=== PATIENT | female | born 1990 ===

== ENCOUNTER 2018-03-04 01:18 | Emergency (ER) | payer SELFPAY ==
[2018-03-04 01:39] VITALS: RESP 16
--- NOTE | 2018-03-04 01:54 | ED PDOC ---
HPI: General Adult Time Seen by Provider: 03/04/18 01:45 Chief Complaint (Nursing): Weakness/Neurological Deficit Chief Complaint (Provider): HYPOGLYCEMIA History Per: Patient (27 Y/O FEMALE IDDM HERE FOR EVALUATION OF EPISODE OF HYPOGLYCEMIA. PATIENT NOTED WITH BS OF 27 AT HOME AND GIVEN GLUCAGON BY MOTHER. STATES SHE TOOK INSULIN NOVOLG AT 6PM USUALY PRIOR TO DINNER BUT HAS HAD A LOT OF PHYSICAL ACTIVITY TODAY CLEANING MULTIPLE HOMES AND BELIEVES THIS IS WHY BLOOD GLUCOSE DROPPED.) Past Medical History Reviewed: Historical Data, Nursing Documentation, Vital Signs Vital Signs: Last Vital Signs Temp Pulse 98 H 03/04/18 01:36 Resp 16 03/04/18 01:36 BP 117/78 03/04/18 01:36 Pulse Ox 100 03/04/18 01:36 - Family History Family History: States: No Known Family Hx - Allergies Allergies/Adverse Reactions: Allergies Allergy/AdvReac Type Severity Reaction Status Date / Time No Known Allergies Allergy Verified 03/04/18 01:39 Review of Systems ROS Statement: Except As Marked, All Systems Reviewed And Found Negative Physical Exam - Reviewed Nursing Documentation Reviewed: Yes Vital Signs Reviewed: Yes - Physical Exam Appears: Positive for: Well, Non-toxic, No Acute Distress Head Exam: Positive for: ATRAUMATIC, NORMAL INSPECTION, NORMOCEPHALIC Skin: Positive for: Normal Color, Warm, DRY Eye Exam: Positive for: EOMI, Normal appearance, PERRL ENT: Positive for: Normal ENT Inspection Neck: Positive for: Normal, Painless ROM Cardiovascular/Chest: Positive for: Regular Rate, Rhythm Respiratory: Positive for: CNT, Normal Breath Sounds Gastrointestinal/Abdominal: Positive for: Normal Exam, Soft Back: Positive for: Normal Inspection Extremity: Positive for: Normal ROM Neurologic/Psych: Positive for: Alert, Oriented - Laboratory Results Result Diagrams: 03/04/18 03:35 03/04/18 03:35 - ECG O2 Sat by Pulse Oximetry: 100 Disposition - Clinical Impression Clinical Impression: Hypoglycemia - Patient ED Disposition Is Patient to be Admitted: No - Disposition Referrals: [facility] [Outside] Disposition: Routine/Home Disposition Time: 04:51 Condition: FAIR Instructions: Low Blood Sugar in People With Diabetes Forms: [employer] ([place])
[2018-03-04 03:44] LABS: BASO % 0.2 % (0.0-2.0); EOS % 0.1 % (0.0-4.0); HEMOGLOBIN 13.8 g/dL (12.0-16.0); LYMPH # 0.9 K/uL (1.0-4.3); LYMPH % 7.3 % (20.0-40.0); MEAN CELL VOLUME 85.8 fl (81.0-99.0); MEAN CORPUSCULAR HEMOGLOBIN 28.1 pg (27.0-31.0); MEAN CORPUSCULAR HGB CONC 32.7 g/dL (33.0-37.0); MEAN PLATELET VOLUME 9.3 fl (7.2-11.7); MONO # 0.4 K/uL (0.0-0.8); MONO % 3.1 % (0.0-10.0); NEUT # 11.5 K/uL (1.8-7.0); NEUT % 89.3 % (50.0-75.0); PLATELET COUNT 230 K/uL (130-400); RBC 4.92 Mil/uL (3.80-5.20); RED CELL DISTRIBUTION WIDTH 14.5 % (11.5-14.5); WHITE BLOOD COUNT 12.9 K/uL (4.8-10.8)
[2018-03-04 03:59] LABS: BLOOD UREA NITROGEN 15 mg/dl (7-17); CALCIUM 8.9 mg/dL (8.4-10.2); GFR NON-AFRICAN AMERICAN > 60
[2018-03-04 04:03] LABS: ALB/GLOB RATIO 1.3 (1.0-2.1); ALBUMIN 4.5 g/dL (3.5-5.0); ALT/SGPT 20 U/L (9-52); AST/SGOT 43 U/L (14-36)
[2018-03-04 05:00] VITALS: TEMP 98.2
[2018-03-04 05:08] LABS: LYMPHOCYTE 5 % (20-50); MONOCYTE 4 % (0-10); NEUTROPHIL 91 % (42-75); PLATELET ESTIMATE NORMAL (NORMAL); TOTAL CELLS COUNTED 100
[2018-03-04 05:09] LABS: ANISOCYTOSIS SLIGHT; OVALOCYTES SLIGHT
[2018-03-04 05:10] LABS: LARGE PLATELETS PRESENT
[2018-03-04 07:54] VITALS: BP 120/63; PULSE 90; O2SAT 99
== END 2018-03-04 05:30 | disposition home or self-care (01) ==
LOC: H.ER 01:18
DX: E11.649 Type 2 diabetes mellitus with hypoglycemia without coma (principal); Z79.4 Long term (current) use of insulin
CPT/HCPCS: 80053; 82948; 84703; 85025; 96374; 99285; J2765